=== PATIENT | male | born 1955 | race Caucasian/White ===

== ENCOUNTER 2021-03-24 21:53 | Emergency (ER) | payer OTHER ==
--- NOTE | 2021-03-24 23:21 | ED Physician Documentation ---
PD HPI HEENT - Stated complaint Stated Complaint: LT EAR PX - Chief complaint Chief Complaint: Heent - History obtained from History obtained from: Patient - History of Present Illness Timing - onset: How many days ago (2) Timing - details: Gradual onset Location: Left ear Improves: Nothing Worsens: Other (palpation) Associated symptoms: No: Fever Recently seen: Clinic - Additional information Additional information: patient complains of left ear pain, redness, and swelling that begin two days ago. Denies trauma. He has a history of similar problem, and had to be admitted to a hospital for IV antibiotics for one of the previous episodes. He is not a diabetic. He was seen in clinic two days ago, and was prescribed Cipro drops and PO Augmentin. He has had two days of these medications thus far, but says his symptoms are worsening. denies fever. Review of Systems Constitutional: denies: Fever, Chills, Sweats Ears: reports: Ear pain. denies: Loss of hearing, Drainage/discharge, Tinnitus/ringing PD PAST MEDICAL HISTORY - Past Medical History Past Medical History: No - Present Medications Home Medications: Ambulatory Orders Medication Instructions Recorded Confirmed Amox/Clav 875/125 [Augmentin 1 tab PO BID 03/24/21 03/24/21 875/125 Tab] Ciproflox/Dexameth Otic Drops 2 drops LEFTEAR TID 03/24/21 03/24/21 [Ciprodex Otic Drops] Sulfamethox/Trimeth 800/160 1 each PO BID #14 tablet 03/25/21 [Bactrim Ds 800/160] clindamycin HCL [Clindamycin HCl] 300 mg PO Q6H #28 cap 03/25/21 - Allergies Allergies/Adverse Reactions: Allergies Allergy/AdvReac Type Severity Reaction Status Date / Time No Known Drug Allergies Allergy Verified 03/24/21 22:02 PD ED PE NORMAL - Vitals Vital signs reviewed: Yes - General General: Alert and oriented X 3, No acute distress, Well developed/nourished - Neck Neck: Supple, no meningeal sign PD ED PE EXPANDED - HEENT HEENT: Other (external auditory canal is without significant erythema, edema. normal left TM. no erythema over left mastoid but mild TTP is present on exam) HEENT Visual: 1 - rash, swelling (diffuse swelling, erythema, tenderness of entire left auricle, with relative sparing of lobule/earlobe) Results - Vitals Vitals: Oxygen O2 Source Room air - Rads (name of study) maxillofacial CT Radiology: Prelim report reviewed, See rad report PD MEDICAL DECISION MAKING - ED course Complexity details: considered differential, d/w patient ED course: patient presents with cellulitis of left ear. His left TM is normal in appearance as is his left external auditory canal. Maxillofacial CT performed and there is no evidence on the study of mastoiditis. He has already completed two days of Cipro drops and Augmentin PO. Despite this, his symptoms have worsened. I advised him to continue the Cipro drops, as he might have had a different exam when these medications were first prescribed (ie he might have had abnormality on exam of external auditory canal that cleared by the time of my exam). however, he is confident that the symptoms that he can feel and that are visible have worsened. Thus I advised him to stop the Augmentin, and start clindamycin and Bactrim. First dose of these medications are given in the emergency department, and prescriptions for same provided. Departure - Departure Disposition: 01 Home, Self Care Clinical Impression: Cellulitis of left ear Condition: Good Instructions: ED Cellulitis Facial Follow-Up: Raúl Chong MD [Primary Care Provider] - (2-3 days for recheck ) Prescriptions: Sulfamethox/Trimeth 800/160 [Bactrim Ds 800/160] 1 each PO BID #14 tablet clindamycin HCL [Clindamycin HCl] 300 mg PO Q6H #28 cap Comments: I recommend continuing the cipro ear drops. Stop the Augmentin and start the bactrim and clindamycin (prescribed tonight). Discharge Date/Time: 03/25/21 02:33
[2021-03-25 01:58] VITALS: BP 109/65
[2021-03-25] MEDS ORDERED: SULFAMETH/TRIMETH DS 800/160 MG TABLET PO STA (02:18)
[2021-03-25] MEDS ORDERED: CLINDAMYCIN 150 MG CAPSULE PO STA (02:18)
--- NOTE | 2021-03-25 09:55 | CT Report ---
PROCEDURE: MAXILLOFACIAL WO INDICATIONS: left ear infection, tender over left mastoid TECHNIQUE: Noncontrast 1.5 mm thick axial images acquired from the mandible through the frontal sinuses, with co yudith and sagittal reformatting. For radiation dose reduction, the following was used: automated ex posure control, adjustment of mA and/or kV according to patient size. COMPARISON: None. FINDINGS: Image quality: Excellent. Bones and teeth: Orbital acevedo are intact. Sinus acevedo show no fracture or deformity. Nasal bones and septum are intact. Visualized portions of the mandible demonstrate no fractures or subluxation. Zygomatic arches are intact. Pterygoid plates are intact. Visualized portions of the skull base an d auditory canals are intact. Sinuses: Paranasal sinuses are aerated, without fluid levels, mucosal thickening, or mucoceles. Mas toid air cells are aerated. Soft tissues: No edema, masses, or fluid collections. No enlarged lymph nodes. No soft tissue lace rations or debris. Vascular: Visualized vascular structures appear normal in the absence of contrast. Bony vascular fo ramina and canals are intact. IMPRESSION: Negative for mastoiditis. No left middle ear fluid can be seen to suggest otitis media. Note: No significant discrepancy from the preliminary report. Reviewed by: Too Montana MD on 03/25/2021 8:54 AM GISEL Approved by: Too Montana MD on 03/25/2021 8:54 AM GISEL Station ID: [id number]
== END 2021-03-25 02:33 | disposition home or self-care (01) ==
LOC: ED 21:53
DX: H60.12 Cellulitis of left external ear (principal)
CPT/HCPCS: 70486; 99283; 99284; A9270